=== PATIENT | female | born 1960 | race Caucasian/White ===

== ENCOUNTER 2016-05-28 15:33 | Emergency (ER) | payer MEDICARE, OTHER | END 2016-05-28 17:04 | disposition home or self-care (01) | LOC: ER 15:33 | DX: N61.1 Abscess of the breast and nipple (principal); E07.9 Disorder of thyroid, unspecified; G89.29 Other chronic pain; M54.9 Dorsalgia, unspecified; Z79.899 Other long term (current) drug therapy | CPT/HCPCS: 10060; 87070; 99070; 99283; 99283-25 ==

== ENCOUNTER 2016-05-30 12:41 | Emergency (ER) | payer MEDICARE, OTHER | END 2016-05-30 13:08 | disposition home or self-care (01) | LOC: ER 12:41 | DX: Z48.02 Encounter for removal of sutures (principal); F17.210 Nicotine dependence, cigarettes, uncomplicated; Z79.899 Other long term (current) drug therapy | CPT/HCPCS: 99070; 99282 ==